=== PATIENT | male | born 1980 | race Asian ===

== ENCOUNTER 2022-01-30 11:27 | Emergency (ER) | payer SELFPAY ==
[~2022-01-30] VITALS: Ht 162.6 cm; Wt 72.6 kg
[2022-01-30 11:30] VITALS: BP 111/76
--- NOTE | 2022-01-30 13:08 | NUR ---
SHAUN ODONNELL EVALUATING PT AT THIS TIME
[2022-01-30] MEDS ORDERED: IBUPROFEN 600 MG TAB PO ONE (13:15)
[2022-01-30] MEDS ORDERED: IBUP-2213 PO (13:20)
[2022-01-30] MEDS ORDERED: PROM118S5 PO (13:20)
--- NOTE | 2022-01-30 13:33 | NUR ---
PATIENT BIB [place] [employer]. PATIENT EXAMINED BY SHAUN ODONNELL. PATIENT MEDICALLY CLEARED AND RELEASED IN CUSTODY IN STABLE CONDITION. ORIGINAL PRE-BOOK FORM GIVEN TO OFFICER [facility] #[id number].
== END 2022-01-30 13:33 ==
LOC: MED 11:27
DX: M79.10 Myalgia, unspecified site (principal)
CPT/HCPCS: 99283

== ENCOUNTER 2022-02-07 17:28 | Emergency (ER) | payer SELFPAY ==
[~2022-02-07] VITALS: Ht 175.3 cm; Wt 81.6 kg
[~2022-02-07 17:28] MED LIST: IBUP-2213 PO; PROM118S5 PO
--- NOTE | 2022-02-07 17:30 | NUR ---
pre-book for [facility] DENIES N/V/D; SKIN IS INTACT, PINK/WARM/DRY; AAOX4, PERRL, WITH EVEN AND STEADY GAIT; LUNGS CLEAR BL, BREATHING UNLABORED; HR EVEN AND REGULAR, BL PERIPHERAL PULSES PRESENT; BS ACTIVE X4, NO TENDERNESS TO PALPATION,PT DENIES ANY FEVER, CP, SOB, OR COUGH AT THIS TIME; PT STATES 0/10 PAIN AT THIS TIME; VSS; PATIENT POSITIONED FOR COMFORT IN CHAIR C
[2022-02-07 17:55] VITALS: BP 121/78
[2022-02-07 18:55] LABS: BASOPHILS % (AUTO) 0.4 % (0.0-2.0); EOSINOPHILS # (AUTO) 0.2 K/uL (0-0.4); EOSINOPHILS % (AUTO) 2.4 % (0.0-4.0); HEMATOCRIT 42.6 % (36-52); HEMOGLOBIN 14.5 g/dL (12.0-18.0); LYMPHOCYTES # (AUTO) 1.6 K/uL (2.0-11.5); LYMPHOCYTES % (AUTO) 17.6 % (20.5-51.1); MEAN CORPUSCULAR HEMOGLOBIN 30 pg (27-31); MEAN CORPUSCULAR HGB CONC 34 g/dL (33-37); MEAN CORPUSCULAR VOLUME 87.2 fL (80-94); MONOCYTES # (AUTO) 0.7 K/uL (0.8-1.0); MONOCYTES % (AUTO) 8.2 % (1.7-9.3); NEUTROPHILS # (AUTO) 6.4 K/uL (1.8-7.7); NEUTROPHILS % (AUTO) 71.4 % (42.2-75.2); PLATELET COUNT (AUTO) 242 K/uL (140-450); RED BLOOD CELL COUNT(AUTO) 4.89 MIL/uL (4.20-6.10); RED CELL DISTRIBUTION WIDTH 12.7 % (11.6-13.7); WHITE BLOOD COUNT (AUTO) 8.9 K/uL (4.8-10.8)
[2022-02-07 19:25] LABS: CARBON DIOXIDE 28.3 mmol/L (21-32); CREATININE 0.9 mg/dL (0.6-1.3); POTASSIUM 4.3 mmol/L (3.5-5.1)
[2022-02-07] MEDS ORDERED: IBUPROFEN 600 MG TAB PO ONE (20:00)
[2022-02-07] MEDS ORDERED: IBUP-2213 PO (20:13)
[2022-02-07 20:20] VITALS: BP 132/78
--- NOTE | 2022-02-07 20:20 | NUR ---
Written and verbal after care instructions given and explained. Patient alert, oriented and verbalized understanding of instructions. Police with in custody. All questions addressed prior to discharge. ID band removed. Patient advised to follow up with PMD. Rx of IBUPROFEN given. Patient educated on indication of medication including possible reaction and side effects. Opportunity to ask questions provided and answered.
== END 2022-02-07 20:20 ==
LOC: MED 17:28
DX: I30.9 Acute pericarditis, unspecified (principal); Z79.899 Other long term (current) drug therapy
CPT/HCPCS: 36415; 71045; 80048; 84484; 85025; 93005; 99285